=== PATIENT | male | born 1965 | race Caucasian/White ===

== ENCOUNTER 2016-05-04 23:58 | Emergency (ER) | payer MEDICAID | END 2016-05-05 00:59 | disposition home or self-care (01) | LOC: D.ER 23:58 | DX: S39.012A Strain of muscle, fascia and tendon of lower back, initial encounter (principal); W01.0XXA Fall on same level from slipping, tripping and stumbling without subsequent striking against object, initial encounter; Y93.89 Activity, other specified; Y92.89 Other specified places as the place of occurrence of the external cause ==

== ENCOUNTER 2016-05-08 21:47 | Emergency (ER) | payer MEDICAID | END 2016-05-08 23:08 | disposition home or self-care (01) | LOC: D.ER 21:47 | DX: M54.5 Low back pain (principal) ==

== ENCOUNTER 2016-06-23 19:28 | Emergency (ER) | payer MEDICAID | END 2016-06-23 23:20 | disposition home or self-care (01) | LOC: D.ER 19:28 | DX: M54.5 Low back pain (principal) ==

== ENCOUNTER 2016-06-28 18:16 | Emergency (ER) | payer MEDICAID | END 2016-06-28 21:40 | disposition home or self-care (01) | LOC: D.ER 18:16 | DX: M54.5 Low back pain (principal) ==

== ENCOUNTER 2017-07-16 20:02 | Emergency (ER) | payer SELFPAY | END 2017-07-16 23:01 | disposition home or self-care (01) | LOC: D.ER 20:02 | DX: L03.115 Cellulitis of right lower limb (principal) ==